=== PATIENT | male | born 1945 | race Caucasian/White ===

== ENCOUNTER 2020-08-22 14:40 | Emergency (ER) | payer OTHER ==
[~2020-08-22] VITALS: Ht 175.3 cm; Wt 77.2 kg
[2020-08-22 16:13] LABS: BASO # 0.1 x10^3/uL (0.0-0.2); BASO % 1 % (0-3); EOS # 0.1 x10^3/uL (0.0-0.7); EOS % 1 % (0-3); HEMATOCRIT 38.5 % (39.0-53.0); HEMOGLOBIN 12.7 g/dL (13.0-17.5); LYMPH # 0.8 x10^3/uL (1.0-4.8); LYMPH % 13 % (24-48); MEAN CORPUSCULAR HEMOGLOBIN 30 pg (25-35); MEAN CORPUSCULAR HGB CONC 33 g/dL (31-37); MEAN CORPUSCULAR VOLUME 90 fL (79-100); MONO # 0.4 x10^3/uL (0.0-1.1); MONO % 6 % (0-9); NEUT # 4.9 x10^3/uL (1.8-7.7); NEUT % 79 % (31-73); PLATELET COUNT 181 x10^3/uL (140-400); RED BLOOD COUNT 4.26 x10^6/uL (4.30-5.70); RED CELL DISTRIBUTION WIDTH 14.9 % (11.5-14.5); WHITE BLOOD COUNT 6.2 x10^3/uL (4.0-11.0)
[2020-08-22] MEDS ORDERED: MECLIZINE HCL 12.5 MG TABLET. PO ONE (16:15)
[2020-08-22 16:36] LABS: BILIRUBIN,URINE SMALL (NEG); CLARITY,URINE CLEAR; NITRITE,URINE NEGATIVE (NEG); PROTEIN,URINE NEGATIVE (NEG-TRACE); UROBILINOGEN,URINE 0.2 mg/dL (0.2 mg/dL)
[2020-08-22 16:37] LABS: CREATININE 1.1 mg/dL (0.7-1.3); GFR 65.8
--- NOTE | 2020-08-22 16:39 | RAD ---
Exam: CT head INDICATION: Dizziness TECHNIQUE: Sequential axial images through the head were obtained without the administration of IV contrast. Comparisons: None FINDINGS: No focal hemorrhage is identified. There is no midline shift or sulcal effacement. There is a extra-axial partially calcified 1.7 cm lesion along the anterior right calvarium overlying the right frontal lobe favored represent meningioma. No acute vascular territory infarction is identified. Maynard-white distinction is preserved. The ventricular system is within normal limits without compression hydrocephalus. The basal cisterns are well maintained. The visualized portions of the paranasal sinuses and mastoid air cells are well-pneumatized. No acute fractures. IMPRESSION: No acute intracranial abnormality. Incidental findings described above. Exposure: One or more of the following in the visualized dose reduction techniques were utilized for this examination: 1. Automated exposure control 2. Adjustment of the MA and/or KV according to patient size Use of iterative of reconstructive technique Electronically signed by: Carmen Pickering MD (08/22/2020 4:36 PM) [facility]
[2020-08-22 16:43] LABS: ALBUMIN 3.8 g/dL (3.4-5.0); ALBUMIN/GLOBULIN RATIO 1.1 (1.0-1.7); MAGNESIUM 2.3 mg/dL (1.8-2.4); TOTAL BILIRUBIN 0.4 mg/dL (0.2-1.0); TOTAL PROTEIN 7.2 g/dL (6.4-8.2)
[2020-08-22 16:49] LABS: COLOR,URINE YELLOW
[2020-08-22 16:55] LABS: HYALINE CASTS, URINE MANY /HPF; YEAST,URINE PRESENT /HPF
[2020-08-22 16:56] LABS: BACTERIA,URINE 0 /HPF (0-FEW); RBC,URINE 20-40 /HPF (0-2); WBC,URINE >40 /HPF (0-4)
[2020-08-22 17:14] VITALS: BP 175/74
[2020-08-22] MEDS ORDERED: cefTRIAXone IV Push 1 GM VIAL. IVP ONE (17:15)
[2020-08-22] MEDS ORDERED: FLUCONAZOLE 100 MG TABLET. PO ONE (17:15)
[2020-08-22] MEDS ORDERED: MECL-75 PO (17:44)
[2020-08-22] MEDS ORDERED: SULF1TAB24 PO (17:44)
--- NOTE | 2020-08-22 17:45 | PHYS DOC ---
Past Medical History Past Medical History: High Cholesterol, Hypertension Additional Past Medical Histor: ENLARGED PROSTATE Past Surgical History: No Surgical History Smoking Status: Former Smoker Alcohol Use: None General Adult EDM: Chief Complaint: DIZZY/LIGHT HEADED HPI: HPI: Patient is a 74 year old male presented to ER for evaluation of dizziness while he was sitting the recliner. The room was spinning, made him want to vomit. The dizziness got worse when he stood up or moved his head. He denies any headache, no blurred vision, no chest pain, no trouble breathing, no weakness or numbness anywhere. Patient does has hearing aids. Patient says he fell but better after he got here and he after he vomited 1 time. Review of Systems: Review of Systems: Constitutional: Denies fever or chills. [] Eyes: Denies change in visual acuity. [] HENT: Denies nasal congestion or sore throat. [] Respiratory: Denies cough or shortness of breath. [] Cardiovascular: Denies chest pain or edema. [] GI: Denies abdominal pain, positive for nausea vomiting., No bloody stools or diarrhea. [] : Denies dysuria. [] Musculoskeletal: Denies back pain or joint pain. [] Integument: Denies rash. [] Neurologic: Positive for dizziness, no focal weakness or numbness. Endocrine: Denies polyuria or polydipsia. [] Lymphatic: Denies swollen glands. [] Psychiatric: Denies depression or anxiety. [] Heart Score: Risk Factors: Risk Factors: DM, Current or recent (<one month) smoker, HTN, HLP, family history of CAD, obesity. Risk Scores: Score 0 - 3: 2.5% MACE over next 6 weeks - Discharge Home Score 4 - 6: 20.3% MACE over next 6 weeks - Admit for Clinical Observation Score 7 - 10: 72.7% MACE over next 6 weeks - Early Invasive Strategies Current Medications: Current Medications Medications (Trade) Dose Ordered Sig/Leann Start Time Stop Time Status Last Admin Dose Admin Ceftriaxone Sodium (Rocephin) 1 gm 1X ONCE 08/22/20 17:15 08/22/20 17:16 DC 08/22/20 17:36 1 GM Fluconazole (Diflucan) 200 mg 1X ONCE 08/22/20 17:15 08/22/20 17:16 DC 08/22/20 17:35 200 MG Meclizine HCl (Antivert) 25 mg 1X ONCE 08/22/20 16:15 08/22/20 16:16 DC 08/22/20 16:30 25 MG Allergies: Allergies: Allergies Coded Allergies Type Severity Reaction Last Updated Verified No Known Drug Allergies 08/22/20 No Physical Exam: PE: Constitutional: Well developed, well nourished, no acute distress, non-toxic appearance. [] HENT: Normocephalic, atraumatic, bilateral external ears normal, oropharynx moist, no oral exudates, nose normal. [] Eyes: PERRLA, EOMI, conjunctiva normal, no discharge. [] Neck: Normal range of motion, no tenderness, supple, no stridor. [] Cardiovascular:Heart rate regular rhythm, no murmur [] Lungs & Thorax: Bilateral breath sounds clear to auscultation [] Abdomen: Bowel sounds normal, soft, no tenderness, no masses, no pulsatile masses. [] Skin: Warm, dry, no erythema, no rash. [] Back: No tenderness, no CVA tenderness. [] Extremities: No tenderness, no cyanosis, no clubbing, ROM intact, no edema. [] Neurologic: Alert and oriented X 3, normal motor function, normal sensory function, no focal deficits noted. [] Psychologic: Affect normal, judgement normal, mood normal. [] Current Patient Data: Labs: Laboratory Tests Test 08/22/20 15:50 08/22/20 16:00 White Blood Count 6.2 x10^3/uL (4.0-11.0) Red Blood Count 4.26 x10^6/uL (4.30-5.70) L Hemoglobin 12.7 g/dL (13.0-17.5) L Hematocrit 38.5 % (39.0-53.0) L Mean Corpuscular Volume 90 fL (79-100) Mean Corpuscular Hemoglobin 30 pg (25-35) Mean Corpuscular Hemoglobin Concent 33 g/dL (31-37) Red Cell Distribution Width 14.9 % (11.5-14.5) H Platelet Count 181 x10^3/uL (140-400) Neutrophils (%) (Auto) 79 % (31-73) H Lymphocytes (%) (Auto) 13 % (24-48) L Monocytes (%) (Auto) 6 % (0-9) Eosinophils (%) (Auto) 1 % (0-3) Basophils (%) (Auto) 1 % (0-3) Neutrophils # (Auto) 4.9 x10^3/uL (1.8-7.7) Lymphocytes # (Auto) 0.8 x10^3/uL (1.0-4.8) L Monocytes # (Auto) 0.4 x10^3/uL (0.0-1.1) Eosinophils # (Auto) 0.1 x10^3/uL (0.0-0.7) Basophils # (Auto) 0.1 x10^3/uL (0.0-0.2) Sodium Level 141 mmol/L (136-145) Potassium Level 4.0 mmol/L (3.5-5.1) Chloride Level 104 mmol/L (98-107) Carbon Dioxide Level 31 mmol/L (21-32) Anion Gap 6 (6-14) Blood Urea Nitrogen 18 mg/dL (8-26) Creatinine 1.1 mg/dL (0.7-1.3) Estimated GFR (Cockcroft-Gault) 65.8 BUN/Creatinine Ratio 16 (6-20) Glucose Level 167 mg/dL (70-99) H Calcium Level 9.0 mg/dL (8.5-10.1) Magnesium Level 2.3 mg/dL (1.8-2.4) Total Bilirubin 0.4 mg/dL (0.2-1.0) Aspartate Amino Transferase (AST) 22 U/L (15-37) Alanine Aminotransferase (ALT) 27 U/L (16-63) Alkaline Phosphatase 85 U/L (46-116) Troponin I Quantitative < 0.017 ng/mL (0.000-0.055) Total Protein 7.2 g/dL (6.4-8.2) Albumin 3.8 g/dL (3.4-5.0) Albumin/Globulin Ratio 1.1 (1.0-1.7) Urine Collection Type Unknown Urine Color Yellow Urine Clarity Clear Urine pH 5.0 (<5.0-8.0) Urine Specific [place] >=1.030 (1.000-1.030) Urine Protein Negative mg/dL (NEG-TRACE) Urine Glucose (UA) Negative mg/dL (NEG) Urine Ketones (Stick) Negative mg/dL (NEG) Urine Blood Trace (NEG) Urine Nitrite Negative (NEG) Urine Bilirubin Small (NEG) Urine Urobilinogen Dipstick 0.2 mg/dL (0.2 mg/dL) Urine Leukocyte Esterase Moderate (NEG) Urine RBC 20-40 /HPF (0-2) Urine WBC >40 /HPF (0-4) Urine Bacteria 0 /HPF (0-FEW) Urine Hyaline Casts Many /HPF Urine Mucus Marked /LPF Urine Yeast Present /HPF Laboratory Tests 08/22/20 15:50 Laboratory Tests 08/22/20 15:50 Vital Signs: Vital Signs Date Time Temp Pulse Resp B/P (MAP) Pulse Ox O2 Delivery O2 Flow Rate FiO2 08/22/20 15:38 97.7 77 20 148/69 (95 93 Room Air 97.7 EKG: EKG: EKG was done at 1522, heart rate of 81 beats per minute, normal sinus rhythm, no ST segment elevation Radiology/Procedures: Radiology/Procedures: [][facility] [address] [place] [address] IMAGING REPORT Signed PATIENT: SHANNON GUPTA ACCOUNT: [id number] : 1945 LOCATION: ER AGE: 74 SEX: M EXAM STATUS: REG ER ORD. PHYSICIAN: PHILLIP NICHOLSON DO REASON: dizziness PROCEDURE: CT HEAD WO CONTRAST Exam: CT head INDICATION: Dizziness TECHNIQUE: Sequential axial images through the head were obtained without the administration of IV contrast. Comparisons: None FINDINGS: No focal hemorrhage is identified. There is no midline shift or sulcal effacement. There is a extra-axial partially calcified 1.7 cm lesion along the anterior right calvarium overlying the right frontal lobe favored represent meningioma. No acute vascular territory infarction is identified. Maynard-white distinction is preserved. The ventricular system is within normal limits without compression hydrocephalus. The basal cisterns are well maintained. The visualized portions of the paranasal sinuses and mastoid air cells are well-pneumatized. No acute fractures. IMPRESSION: No acute intracranial abnormality. Incidental findings described above. Exposure: One or more of the following in the visualized dose reduction techniques were utilized for this examination: 1. Automated exposure control 2. Adjustment of the MA and/or KV according to patient size Use of iterative of reconstructive technique Electronically signed by: Carmen Schultz MD (08/22/2020 4:36 PM) LOCATED WITHIN [facility] DICTATED and SIGNED BY: CARMEN SCHULTZ MD DATE: 08/22/20 1636 Course & Med Decision Making: Course & Med Decision Making Pertinent Labs and Imaging studies reviewed. (See chart for details) Patient is a 74-year-old male who was evaluated in ER due to dizziness. Patient was given meclizine p.o. and he feels much better. CT scan head did not show any acute problem, EKG was normal as well. Patient was found to have a yeast infection and UTI. Patient will be discharged home with antibiotic and meclizine. Patient will need to follow-up with her family for reevaluation. Patient is amenable to plan of care. Dragon Disclaimer: Dragon Disclaimer: This electronic medical record was generated, in whole or in part, using a voice recognition dictation system. Departure Departure Impression: Primary Impression: Dizziness Additional Impression: UTI (urinary tract infection) Disposition: HOME, SELF-CARE Condition: IMPROVED Referrals: ASH ESPINAL (PCP) please call your family doctor for follow up this week Patient Instructions: Dizziness, Urinary Tract Infection Additional Instructions: Thank you for visiting our Emergency Department. We appreciate you trusting us with your care. If any additional problems come up don't hesitate to return to visit us. Please follow up with your primary care provider so they can plan additional care if needed and know about the problem that you had. If symptoms worsen come back to the Emergency Department. Any concerning symptoms that start such as chest pain, shortness of air, weakness or numbness on one side of the body, running high fevers or any other concerning symptoms return to the ER. Scripts Meclizine Hcl (MECLIZINE HCL) 25 Mg Tablet 1 TAB PO TID PRN for dizziness, #30 TAB Prov: PHILLIP NICHOLSON DO 08/22/20 Sulfamethoxazole/Trimethoprim (BACTRIM DS TABLET) 1 Each Tablet 1 TAB PO BID for 10 Days, #20 TAB 0 Refills Prov: PHILLIP NICHOLSON DO 08/22/20 PHILLIP NICHOLSON DO Aug 22, 2020 17:45
--- NOTE | 2020-08-23 06:26 | EKG ---
[facility] [address] [place] [address] Test Date: 2020-08-22 Test Time: 15:32:18 Pat Name: SHANNON GUPTA Department: Room: Gender: M [employer]her: : 1945 Requested By: PHILLIP NICHOLSON Order Number: [id number] Reading MD: Measurements Intervals [place] Rate: 81 P: 90 [place]: 190 QRS: 66 QRSD: 92 T: 56 QT: 358 QTc: 416 Interpretive Statements SINUS RHYTHM NO SPECIFIC ECG ABNORMALITIES RI6.02 No previous ECG available for comparison
== END 2020-08-22 18:09 | disposition home or self-care (01) ==
LOC: ER 14:40
DX: N39.0 Urinary tract infection, site not specified (principal); R42 Dizziness and giddiness; E78.00 Pure hypercholesterolemia, unspecified; I10 Essential (primary) hypertension; N40.0 Benign prostatic hyperplasia without lower urinary tract symptoms; Z87.891 Personal history of nicotine dependence
CPT/HCPCS: 36415; 70450; 80053; 81001; 83735; 84484; 85025; 87086; 93005; 96374; 99285; J0696; J8597

== ENCOUNTER 2022-01-08 12:36 | Emergency (ER) | payer MEDICARE, OTHER ==
[~2022-01-08] VITALS: Ht 170.2 cm; Wt 60.0 kg
[~2022-01-08 12:36] MED LIST: MECL-75 PO; SULF1TAB24 PO
[2022-01-08] MEDS ORDERED: GLYCERIN CHILD 1 SUPP.RECT. PR ONE (13:15)
[2022-01-08] MEDS ORDERED: SODIUM PHOSPHATES 19/7GM 133 ML ENEMA. PR ONE (13:30)
[2022-01-08 13:45] LABS: BASO % 0 % (0-3); EOS % 0 % (0-3); HEMATOCRIT 39.2 % (39.0-53.0); HEMOGLOBIN 12.6 g/dL (13.0-17.5); LYMPH # 0.6 x10^3/uL (1.0-4.8); LYMPH % 6 % (24-48); MEAN CORPUSCULAR HEMOGLOBIN 29 pg (25-35); MEAN CORPUSCULAR HGB CONC 32 g/dL (31-37); MEAN CORPUSCULAR VOLUME 91 fL (79-100); MONO # 0.5 x10^3/uL (0.0-1.1); MONO % 5 % (0-9); NEUT # 9.2 x10^3/uL (1.8-7.7); NEUT % 89 % (31-73); PLATELET COUNT 185 x10^3/uL (140-400); RED CELL DISTRIBUTION WIDTH 15.1 % (11.5-14.5); WHITE BLOOD COUNT 10.4 x10^3/uL (4.0-11.0)
[2022-01-08 14:01] LABS: CREATININE 1.2 mg/dL (0.7-1.3); GFR 59.2; POTASSIUM 3.8 mmol/L (3.5-5.1)
[2022-01-08 14:14] LABS: ALBUMIN 4.1 g/dL (3.4-5.0); ALBUMIN/GLOBULIN RATIO 1.1 (1.0-1.7); MAGNESIUM 1.9 mg/dL (1.8-2.4); TOTAL BILIRUBIN 0.5 mg/dL (0.2-1.0); TOTAL PROTEIN 7.7 g/dL (6.4-8.2)
[2022-01-08] MEDS ORDERED: IOHEXOL 240 MG/ML 50ML VIAL. PO ONE (14:15)
[2022-01-08] MEDS ORDERED: IOHEXOL 300 MG/ML 100ML VIAL. IV ONE (14:15)
[2022-01-08] MEDS ORDERED: CONTRAST GIVEN. MC PRN (14:15)
[2022-01-08 15:00] VITALS: BP 95/48
--- NOTE | 2022-01-08 15:28 | RAD ---
Exam: CT abdomen/pelvis with intravenous contrast Indication: Abdominal pain and constipation Comparison: None Technique: Helical CT imaging performed of the abdomen and pelvis after the intravenous administratio n of 60 mL Isovue-300 contrast. Sagittal and coronal reformats were obtained. One or more of the following individualized dose reduction techniques were utilized for this examinat ion: 1. Automated exposure control 2. Adjustment of the mA and/or kV according to patient size 3. Use of iterative reconstruction technique. Findings: Lower chest: The lung bases are clear. The heart is normal in size. There are coronary artery calcifi cations. Right gynecomastia is noted. Liver: No focal liver lesions. Gallbladder/Biliary Tree: Normal. Pancreas: Normal. Spleen: Normal. Adrenal Glands: Normal. Kidneys/Ureters/Bladder: Kidneys are normal in size. No hydronephrosis. There is a 3 cm simple cyst i n the right kidney into small cyst in the left kidney measuring up to 1 cm. Ureters are normal. There is nodularity at the base of bladder, likely due to indentation from the prostate gland.. Reproductive Organs: Prostate gland is enlarged measuring 5.6 x 6.6 cm. There are calcifications in t he prostate gland and seminal vesicles. Stomach, small bowel, and colon: The stomach is normal. A small amount of the small bowel is seen wit hin a right inguinal hernia. There is no small bowel obstruction. There is a large stool ball in the rectum. The colon is otherwise unremarkable. Vasculature: Abdominal aorta is normal in caliber. Mild calcified aortoiliac atherosclerosis. Lymph Nodes: No lymphadenopathy. Peritoneum and retroperitoneum: No free fluid or free air. Bones: The bones are diffusely demineralized. The sacroiliac joints are partially fused and there are bridging syndesmophytes throughout the lumbar spine and visualized thoracic spine, consistent with a nkylosing spondylitis. There is 4 mm anterolisthesis of L5 on S1. Miscellaneous: A right inguinal hernia containing small bowel. No evidence of complication. Impression: 1. Large stool ball in the rectum. 2. Right inguinal hernia containing a loop of small bowel. No small bowel obstruction or evidence of complication. 3. Very enlarged prostate gland with nodularity indenting the base of the bladder. 4. Findings of ankylosing spondylitis. Electronically signed by: Samina Mason MD (01/08/2022 3:26 PM) [id number]
[2022-01-08] MEDS ORDERED: POLY119P4 PO (15:45)
--- NOTE | 2022-01-08 15:51 | PHYS DOC ---
Past Medical History Past Medical History: Constipation, High Cholesterol, Hypertension Additional Past Medical Histor: ENLARGED PROSTATE (AUTUMN CONDE) Past Surgical History: No Surgical History (AUTUMN CONDE) Smoking Status: Former Smoker Alcohol Use: None (AUTUMN CONDE) General Adult EDM: Chief Complaint: CONSTIPATION HPI: HPI: Patient is a 76 year old male who presents with constipation. Patient states for the past 3 weeks, he has had small, very hard bowel movements. He states he passes 23 small fecal balls each time he goes to the bathroom. Patient reports low abdominal pain as well. He denies nausea, vomiting, diarrhea, obstipation. (AUTUMN CONDE) Review of Systems: Review of Systems: Constitutional: Denies fever, chills or generalized weakness Eyes: Denies change in visual acuity, visual field deficits or discharge HENT: Denies ear pain, nasal congestion or sore throat Respiratory: Denies cough or shortness of breath Cardiovascular: Denies chest pain, palpitations or edema GI: See HPI : Denies dysuria or hematuria Musculoskeletal: Denies back pain or joint pain Integument: Denies rash or other skin lesion Neurologic: Denies headache, focal weakness or sensory changes (AUTUMN CONDE) Heart Score: C/O Chest Pain: No (AUTUMN CONDE) Current Medications: Current Medications Medications (Trade) Dose Ordered Sig/Leann Route PRN Reason Start Time Stop Time Status Last Admin Dose Admin Sodium Monofluorophosphate (Fleet Adult) 133 ml 1X ONCE VA 01/08/22 13:30 01/08/22 13:31 DC 01/08/22 13:30 133 ML Iohexol (Omnipaque 300 Mg/ml) 60 ml 1X ONCE IV 01/08/22 14:15 01/08/22 14:16 DC 01/08/22 14:15 60 ML Iohexol (Omnipaque 240 Mg/ml) 50 ml 1X ONCE PO 01/08/22 14:15 01/08/22 14:16 DC 01/08/22 14:15 50 ML (AUTUMN CONDE) Allergies: Allergies: Allergies Coded Allergies Type Severity Reaction Last Updated Verified No Known Drug Allergies 08/22/20 No (AUTUMN CONDE) Physical Exam: PE: Constitutional: Well developed, well nourished, no acute distress, non-toxic appearance. HENT: Normocephalic, atraumatic, bilateral external ears normal, nose normal. Eyes: EOMI, conjunctiva normal, no discharge. Neck: Normal range of motion, no stridor. Abdomen: Bowel sounds normal, soft, low abdominal tenderness with some firmness to palpation, no masses, no pulsatile masses. Skin: Warm, dry, no erythema, no rash. Extremities: No tenderness, no cyanosis, no clubbing, ROM intact, no edema. Neurologic: Alert and oriented x4, steady and symmetrical upright gait, no focal deficits noted. (AUTUMN CONDE) Current Patient Data: Labs: Laboratory Tests Test 01/08/22 13:30 White Blood Count 10.4 x10^3/uL (4.0-11.0) Red Blood Count 4.30 x10^6/uL (4.30-5.70) Hemoglobin 12.6 g/dL (13.0-17.5) L Hematocrit 39.2 % (39.0-53.0) Mean Corpuscular Volume 91 fL (79-100) Mean Corpuscular Hemoglobin 29 pg (25-35) Mean Corpuscular Hemoglobin Concent 32 g/dL (31-37) Red Cell Distribution Width 15.1 % (11.5-14.5) H Platelet Count 185 x10^3/uL (140-400) Neutrophils (%) (Auto) 89 % (31-73) H Lymphocytes (%) (Auto) 6 % (24-48) L Monocytes (%) (Auto) 5 % (0-9) Eosinophils (%) (Auto) 0 % (0-3) Basophils (%) (Auto) 0 % (0-3) Neutrophils # (Auto) 9.2 x10^3/uL (1.8-7.7) H Lymphocytes # (Auto) 0.6 x10^3/uL (1.0-4.8) L Monocytes # (Auto) 0.5 x10^3/uL (0.0-1.1) Eosinophils # (Auto) 0.0 x10^3/uL (0.0-0.7) Basophils # (Auto) 0.0 x10^3/uL (0.0-0.2) Sodium Level 142 mmol/L (136-145) Potassium Level 3.8 mmol/L (3.5-5.1) Chloride Level 103 mmol/L (98-107) Carbon Dioxide Level 26 mmol/L (21-32) Anion Gap 13 (6-14) Blood Urea Nitrogen 23 mg/dL (8-26) Creatinine 1.2 mg/dL (0.7-1.3) Estimated GFR (Cockcroft-Gault) 59.2 BUN/Creatinine Ratio 19 (6-20) Glucose Level 130 mg/dL (70-99) H Calcium Level 9.0 mg/dL (8.5-10.1) Magnesium Level 1.9 mg/dL (1.8-2.4) Total Bilirubin 0.5 mg/dL (0.2-1.0) Aspartate Amino Transferase (AST) 19 U/L (15-37) Alanine Aminotransferase (ALT) 25 U/L (16-63) Alkaline Phosphatase 79 U/L (46-116) Total Protein 7.7 g/dL (6.4-8.2) Albumin 4.1 g/dL (3.4-5.0) Albumin/Globulin Ratio 1.1 (1.0-1.7) Lipase 106 U/L (73-393) Laboratory Tests 01/08/22 13:30 Laboratory Tests 01/08/22 13:30 Vital Signs: Vital Signs Date Time Temp Pulse Resp B/P (MAP) Pulse Ox O2 Delivery O2 Flow Rate FiO2 01/08/22 15:00 70 20 95/48 (64) 94 Room Air 01/08/22 12:41 98.1 100 20 132/65 (87) 93 Room Air 98.1 (AUTUMN CONDE) Radiology/Procedures: Radiology/Procedures: PROCEDURE: CT ABD PELV W/ORAL&IV CONTRAST Exam: CT abdomen/pelvis with intravenous contrast Indication: Abdominal pain and constipation Comparison: None Technique: Helical CT imaging performed of the abdomen and pelvis after the intravenous administration of 60 mL Isovue-300 contrast. Sagittal and coronal reformats were obtained. One or more of the following individualized dose reduction techniques were utilized for this examination: 1. Automated exposure control 2. Adjustment of the mA and/or kV according to patient size 3. Use of iterative reconstruction technique. Findings: Lower chest: The lung bases are clear. The heart is normal in size. There are coronary artery calcifications. Right gynecomastia is noted. Liver: No focal liver lesions. Gallbladder/Biliary Tree: Normal. Pancreas: Normal. Spleen: Normal. Adrenal Glands: Normal. Kidneys/Ureters/Bladder: Kidneys are normal in size. No hydronephrosis. There is a 3 cm simple cyst in the right kidney into small cyst in the left kidney measuring up to 1 cm. Ureters are normal. There is nodularity at the base of bladder, likely due to indentation from the prostate gland.. Reproductive Organs: Prostate gland is enlarged measuring 5.6 x 6.6 cm. There are calcifications in the prostate gland and seminal vesicles. Stomach, small bowel, and colon: The stomach is normal. A small amount of the small bowel is seen within a right inguinal hernia. There is no small bowel obstruction. There is a large stool ball in the rectum. The colon is otherwise unremarkable. Vasculature: Abdominal aorta is normal in caliber. Mild calcified aortoiliac atherosclerosis. Lymph Nodes: No lymphadenopathy. Peritoneum and retroperitoneum: No free fluid or free air. Bones: The bones are diffusely demineralized. The sacroiliac joints are partially fused and there are bridging syndesmophytes throughout the lumbar spine and visualized thoracic spine, consistent with ankylosing spondylitis. There is 4 mm anterolisthesis of L5 on S1. Miscellaneous: A right inguinal hernia containing small bowel. No evidence of complication. Impression: 1. Large stool ball in the rectum. 2. Right inguinal hernia containing a loop of small bowel. No small bowel obstruction or evidence of complication. 3. Very enlarged prostate gland with nodularity indenting the base of the bladder. 4. Findings of ankylosing spondylitis. Electronically signed by: Samina Mason MD (01/08/2022 3:26 PM) [id number] (AUTUMN CONDE) Course & Med Decision Making: Course & Med Decision Making Pertinent Labs and Imaging studies reviewed. (See chart for details) Patient is a 76-year-old male who presents with 3-week history of constipation. He states he did attempt to take p.o. MiraLAX at home without successful bowel movement. During triage, ALANIS Arenas was able to digitally disimpact some stool from the rectum. At that time, we decided to give the patient an enema to encourage bowel movement passage. Patient was able to successfully pass a large amount of hard stool. CT imaging apart from stool in the rectal vault was negative. Patient reports he feels mu ch improved. Patient was advised to continue taking MiraLAX for at least 1 week to ensure that the fecal impaction does not resume. Return precautions were provided. Patient understands and is agreeable to discharge plan. (AUTUMN CONDE) Dragon Disclaimer: Dragon Disclaimer: This electronic medical record was generated, in whole or in part, using a voice recognition dictation system. (AUTUMN CONDE) Departure Departure Impression: Primary Impression: Constipation Qualified Codes: K59.09 - Other constipation Additional Impressions: Inguinal hernia Qualified Codes: K40.90 - Unilateral inguinal hernia, without obstruction or gangrene, not specified as recurrent Hemorrhoids Qualified Codes: K64.9 - Unspecified hemorrhoids Enlarged prostate Disposition: HOME / SELF CARE / HOMELESS Condition: IMPROVED Referrals: NO PCP (PCP) Patient Instructions: Constipation, Adult, [id number], Hemorrhoids, [id number] Additional Instructions: EMERGENCY DEPARTMENT GENERAL DISCHARGE INSTRUCTIONS Thank you for coming to [facility] Emergency Department (ED) today and trusting us with you care. We trust that you had a positive experienc e in our Emergency Department. If you wish to speak to the department management, you may call the director at . YOUR FOLLOW UP INSTRUCTIONS ARE FOLLOWS: 1. Follow up with your primary care doctor. If you do not have a primary doctor, please ask for a resource list of physicians or clinics that may be able to assist you with follow up care. 2. The emergency provider has interpreted your imaging studies, if any were ordered. The radiology pre billing specialist also reviewed them. If there is a change in the findings, you will be notified in 48 hours when at all possible. 3. If a lab test or culture has been done, your results will be reviewed and you will be notified if you need a change in treatment. 4. Follow instructions verbalized to you and refer to the printouts if needed. ADDITIONAL INSTRUCTIONS AND INFORMATION: 1. Your care today has been supervised by a physician who is specially trained in emergency care. Many problems require more than one evaluation for a complete diagnosis and treatment. We recommend that you schedule your follow up appointment as recommended to ensure complete treatment of you illness or injury. If you are unable to obtain follow up care and continue to have a problem, or if your condition worsens, we recommend that you return to the ED. 2. We are not able to safely determine your condition over the phone nor are we able to give sound medical advice over the phone. For these safety reasons, if you call for medical advice we will ask you to come to the ED for further evaluation. 3. If you have any questions regarding these discharge instructions please call the ED at . SAFETY INFORMATION: In the interest of safety, wellness, and injury prevention; we encourage you to wear your seat belt, if you smoke; quite smoking, and we encourage family to use a protective helmet for bicycling and other sporting events that present an increased risk for head injury. IF YOUR SYMPTOMS WORSEN OR NEW SYMPTOMS DEVELOP, OR YOU HAVE CONCERNS ABOUT YOUR CONDITION; OR IF YOUR CONDITION WORSENS WHILE YOU ARE WAITING FOR YOUR FOLLOW UP APPOINTMENT; EITHER CONTACT YOUR PRIMARY CARE DOCTOR, THE PHYSICIAN WHOSE NAME AND NUMBER YOU WERE GIVEN, OR RETURN TO THE ED IMMEDIATELY. Scripts Polyethylene Glycol 3350 (MIRALAX) 119 Gm Powder 17 GM PO DAILY for constipation, #255 GM 0 Refills dissolve in water Prov: AUTUMN CONDE 01/08/22 Attending Signature Attending Signature I have reviewed the PA/ELIGIBILITY MANAGER's note and plan of care. I was available for consultation as needed during the patient's visit in the emergency department. I agree with the clinical impression, plan, and disposition. (YEN MIMS DO) AUTUMN CONDE Jan 08, 2022 15:51 YEN MIMS DO Jan 09, 2022 09:18
== END 2022-01-08 16:10 | disposition home or self-care (01) ==
LOC: ER 12:36
DX: K40.90 Unilateral inguinal hernia, without obstruction or gangrene, not specified as recurrent (principal); K59.09 Other constipation; K64.9 Unspecified hemorrhoids; E78.00 Pure hypercholesterolemia, unspecified; I10 Essential (primary) hypertension; Z87.891 Personal history of nicotine dependence
CPT/HCPCS: 36415; 74177; 80053; 83690; 83735; 85025; 99284; Q9966; Q9967